=== PATIENT | female | born 1985 | race Caucasian/White ===

== ENCOUNTER 2018-06-26 06:29 | Emergency (ER) | payer BC ==
[~2018-06-26] VITALS: Ht 157.5 cm; Wt 56.0 kg
[2018-06-26 06:36] VITALS: Ht 157.5 cm; Wt 56.0 kg
[2018-06-26 08:30] VITALS: BP 135/78
== END 2018-06-26 08:30 | disposition home or self-care (01) ==
LOC: ED 06:29
DX: J20.8 Acute bronchitis due to other specified organisms (principal); Z87.442 Personal history of urinary calculi
CPT/HCPCS: J1885; Q0092; Q0162

== ENCOUNTER 2019-06-25 08:06 | Emergency (ER) | payer BC ==
[~2019-06-25] VITALS: Ht 157.5 cm; Wt 54.4 kg
[2019-06-25 08:31] VITALS: Ht 157.5 cm; Wt 54.4 kg
[2019-06-25 10:13] LABS: UA SPECIFIC GRAVITY 1.015 (1.005-1.035); microscopic required? YES; urine erythrocyte 2+ (NEGATIVE)
[2019-06-25 10:39] LABS: BASOPHIL % 1.8 % (0-2); PLATELET COUNT 262 x10^3mcL (130-400); RED CELL DISTRIBUTION WIDTH 13.5 % (11.5-14.5)
[2019-06-25 12:30] VITALS: BP 132/74
== END 2019-06-25 12:30 | disposition home or self-care (01) ==
LOC: ED 08:06
PROVIDERS: Emergency Medicine
DX: O20.0 Threatened abortion (principal); O23.591 Infection of other part of genital tract in pregnancy, first trimester; Z87.19 Personal history of other diseases of the digestive system; Z3A.08 8 weeks gestation of pregnancy
CPT/HCPCS: 36415